=== PATIENT | female | born 1940 | race Caucasian/White ===

== ENCOUNTER 2022-02-23 12:44 | Inpatient (IN) | payer MEDICARE ==
[2022-02-23 14:40] VITALS: BMI 22.4
[2022-02-23] MEDS ORDERED: Calcium Carbonate 500 MG ChewTAB PO PRN (15:51)
[2022-02-23] MEDS ORDERED: Electrolyte Replacement Protocol 1 EACH FS SCH (16:00)
[2022-02-23] MEDS: Ondansetron PF 4 MG/2 ML Vial IVP PRN ×2 (16:51→20:25)
[2022-02-23] MEDS: Morphine 2 MG/ML VIAL SLOW IVP PRN (16:51)
[2022-02-23] MEDS: D5 1/2 NS w/20 mEq KCL 1,000 ML IV SCH (17:05)
[2022-02-23] MEDS ORDERED: Morphine 2 MG/ML VIAL SLOW IVP PRN (20:10)
[2022-02-23] MEDS: Pantoprazole 40 MG VIAL IVP SCH (20:26)
[2022-02-23 21:53] LABS: SARS-CoV-2 PCR by NAA Not Detected (NotDetected)
[2022-02-23] MEDS: metroNIDAZOLE 500 MG in Premix Bag 1 BAG IVPB SCH (22:09)
[2022-02-23] MEDS: Loratadine 10 MG TAB PO PRN (22:21)
[2022-02-24] MEDS: D5 1/2 NS w/20 mEq KCL 1,000 ML IV SCH (02:42)
[2022-02-24] MEDS: metroNIDAZOLE 500 MG in Premix Bag 1 BAG IVPB SCH ×3 (05:30→23:05)
[2022-02-24] MEDS: Ondansetron PF 4 MG/2 ML Vial IVP PRN ×3 (05:35→20:48)
[2022-02-24] MEDS: Morphine 2 MG/ML VIAL SLOW IVP PRN ×3 (05:35→20:37)
[2022-02-24 07:03] LABS: #Lymphocytes 2.7 thou/uL (1.20-3.40); #Monocytes 0.8 thou/uL (0.11-0.59); #Neutrophils 5.7 thou/uL (1.40-6.50); %Basophils 0.3 % (0.0-1.0); %Eosinophils 0.2 % (0.0-10.0); %Lymphocytes 28.8 % (21.0-51.0); %Monocytes 9.1 % (0.0-10.0); %Neutrophils 61.6 % (42.0-75.0); Hemoglobin 12.8 g/dL (12.0-16.0); Mean Corpuscular HGB CONC 31.8 g/dL (32.0-36.0); Mean Corpuscular Hemoglobin 30.6 pg (27.0-31.0); Mean Corpuscular Volume 96.4 fL (78.0-98.0); Mean Platelet Volume 7.3 fL (7.4-10.4); Platelet Count 307 thou/uL (130-400); RBC Distribution Width 12.2 % (11.5-14.5); White Blood Cell (WBC) Count 9.2 thou/uL (4.8-10.8)
[2022-02-24 08:13] LABS: ALT (SGPT) 12 U/L (8-55); AST (SGOT) 17 U/L (5-34); Albumin 3.3 g/dL (3.4-4.8); Alkaline Phosphatase 83 U/L (40-110); Anion Gap 11 mmol/L (10-20); BUN (Urea Nitrogen) 5 mg/dL (9.8-20.1); Bilirubin, Total 0.3 mg/dL (0.2-1.2); Calc. Creatinine Clearance 60 mL/min (70-130); Calcium 8.8 mg/dL (7.8-10.44); Carbon Dioxide 22 mmol/L (23-31); Chloride 107 mmol/L (98-107); Globulin 2.8 g/dL (2.4-3.5); Glucose 94 mg/dL (83-110); Magnesium 1.8 mg/dL (1.6-2.6); Phosphorus 2.9 mg/dL (2.3-4.7); Potassium 3.8 mmol/L (3.5-5.1); Protein, Total 6.1 g/dL (5.8-8.1); Sodium 136 mmol/L (136-145)
[2022-02-24] MEDS ORDERED: Magnesium 2 GM/50 ML(in water) 2 GM in Premix Bag 1 BAG IVPB SCH (09:00)
[2022-02-24] MEDS: Pantoprazole 40 MG VIAL IVP SCH (09:14)
[2022-02-24] MEDS: Dextrose 5 %-0.45 % NaCl 1,000 ML IV SCH ×2 (09:23→10:45)
[2022-02-24] MEDS ORDERED: Iopamidol-370 76% 500 ML 1 ML ONE (10:28)
[2022-02-24] MEDS: Trospium 20 MG TAB PO SCH (20:56)
[2022-02-24] MEDS: DULoxetine 60 MG CAP PO SCH (20:56)
[2022-02-24] MEDS: Loratadine 10 MG TAB PO PRN (20:57)
[2022-02-24] MEDS: Carvedilol 3.125 MG TAB PO SCH (20:57)
[2022-02-24] MEDS: Metoprolol Tartrate 25 MG TAB PO SCH (20:58)
[2022-02-24] MEDS: Atorvastatin Calcium 20 MG TAB PO SCH (21:01)
[2022-02-25] MEDS: Ondansetron ODT 4 MG TAB PO PRN ×3 (05:22→17:57)
[2022-02-25] MEDS: Morphine 2 MG/ML VIAL SLOW IVP PRN (05:23)
[2022-02-25] MEDS: Dextrose 5 %-0.45 % NaCl 1,000 ML IV SCH ×3 (05:39→22:06)
[2022-02-25] MEDS: metroNIDAZOLE 500 MG in Premix Bag 1 BAG IVPB SCH ×3 (06:20→22:53)
[2022-02-25] MEDS: Ondansetron PF 4 MG/2 ML Vial IVP PRN ×2 (08:30→14:36)
[2022-02-25] MEDS: Carvedilol 3.125 MG TAB PO SCH ×2 (10:11→21:51)
[2022-02-25] MEDS: Aspirin 81 mg Enteric Coated Tablet PO SCH (10:11)
[2022-02-25] MEDS: Metoprolol Tartrate 25 MG TAB PO SCH ×2 (10:12→21:52)
[2022-02-25] MEDS: Trospium 20 MG TAB PO SCH ×2 (10:12→21:52)
[2022-02-25] MEDS: Acetaminophen 325 MG TAB PO PRN ×4 (10:18→23:15)
[2022-02-25] MEDS ORDERED: Baclofen 10 MG TAB PO PRN (18:03)
[2022-02-25] MEDS ORDERED: Lorazepam 2 MG/ML VIAL SLOW IVP PRN (18:33)
[2022-02-25] MEDS ORDERED: Promethazine HCl 25 MG in Sodium Chloride 0.9% 50 ML IVPB SCH (20:30)
[2022-02-25 20:34] VITALS: TEMP 97.8
[2022-02-25] MEDS ORDERED: Amitriptyline HCl 10 MG TAB PO SCH (21:00)
[2022-02-25] MEDS: Gabapentin 300 MG CAP PO SCH (21:50)
[2022-02-25] MEDS: DULoxetine 60 MG CAP PO SCH (21:52)
[2022-02-25] MEDS: Atorvastatin Calcium 20 MG TAB PO SCH (21:52)
[2022-02-25] MEDS: Baclofen 10 MG TAB PO SCH (21:55)
[2022-02-26] MEDS: metroNIDAZOLE 500 MG in Premix Bag 1 BAG IVPB SCH (06:31)
[2022-02-26 08:36] VITALS: BP 123/70
[2022-02-26] MEDS: Gabapentin 300 MG CAP PO SCH (08:41)
[2022-02-26] MEDS: Aspirin 81 mg Enteric Coated Tablet PO SCH (08:41)
[2022-02-26] MEDS: Carvedilol 3.125 MG TAB PO SCH (08:43)
[2022-02-26] MEDS: Metoprolol Tartrate 25 MG TAB PO SCH (08:43)
[2022-02-26] MEDS: Trospium 20 MG TAB PO SCH (08:44)
[2022-02-26] MEDS: Baclofen 10 MG TAB PO SCH (08:44)
[2022-02-26] MEDS: Dextrose 5 %-0.45 % NaCl 1,000 ML IV SCH (12:27)
== END 2022-02-26 12:59 | disposition home or self-care (01) | DRG 392 ==
LOC: T4-B 14:31 → OBSVTOIN 02-24 13:27
PROVIDERS: ADMIT Family Medicine; ATTEND Family Medicine
DX: R11.2 Nausea with vomiting, unspecified (principal); R10.13 Epigastric pain; Z20.822 Contact with and (suspected) exposure to COVID-19; F12.10 Cannabis abuse, uncomplicated; G89.4 Chronic pain syndrome; F41.9 Anxiety disorder, unspecified; F32.A Depression, unspecified; E78.5 Hyperlipidemia, unspecified; I10 Essential (primary) hypertension; I25.10 Atherosclerotic heart disease of native coronary artery without angina pectoris; Z87.11 Personal history of peptic ulcer disease; Z88.1 Allergy status to other antibiotic agents; Z88.5 Allergy status to narcotic agent; Z88.0 Allergy status to penicillin; Z88.2 Allergy status to sulfonamides; Z88.8 Allergy status to other drugs, medicaments and biological substances; Z79.899 Other long term (current) drug therapy; Z90.49 Acquired absence of other specified parts of digestive tract; Z90.710 Acquired absence of both cervix and uterus; Z98.890 Other specified postprocedural states; Z71.51 Drug abuse counseling and surveillance of drug abuser
CPT/HCPCS: 36415; 74174; 80053; 83735; 84100; 84484; 85025; 86140; 96374; 96375; 96376; C9113; G0378; J0744; J2270; J2405; J2550; J3475; J3480; J7042; Q0162; Q9967; U0003; U0005